=== PATIENT | female | born 1990 | race Caucasian/White ===

== ENCOUNTER 2024-10-21 05:36 | Inpatient (IN) | payer OTHER, SELFPAY ==
--- NOTE | 2024-10-21 05:04 | HPS.HSE ---
Family Physician
-
Family Physician: BAKARI Hobbs
Chief Complaint
-
repeat
History of Present Illness
HPI: Patient is a 34yo @39.0 who presents to Labor and Delivery for scheduled repeat . She declines TOLAC. She hs no complaints.
complications:
- Advanced maternal age
- History of prior C/Sx1 for failed IOL, declines TOLAC
- Limited views of corpus callosum and CSP on anatomy US, present on MRI at [facility]
- Elevated 1hr, 3hr wnl
- GBS positive
labs: Blood type A+, Ab neg, Pap NILM neg HPV, Rubella immune, RPR non-reactive, HBsAg neg, HIV neg, GCCT neg, Hep C neg, A1C 5.3, 1hr 143, 3hr wnl, GBS positive
PMHx: anxiety
Meds: PNV, zoloft 50mg daily
Surghx: C/Sx1
NKDA
Socialhx: denies tobacco, etoh, or illicit drug use
Famhx: father and maternal grandfather w/ HTN, maternal grandfather w/ HLD, maternal grandfather w/ AR and CAD
OBHx: PLTCS for failed IOL
Medical History
Past Medical History
Past Medical History: Reports Psychiatric
Additional Past Medical History:
anxiety
Past Surgical History: Reports
Social History
Tobacco: Non-smoker
Alcohol: None
Drug: None
Family History
Family History: CAD and Hypertension
Allergies / Home Medications
Allergies reflects when Allergies were last updated in [facility].
Home Medications with original date entered in [facility]
Allergy/Medication List:
Meds: PNV, Sertraline 50mg daily
NKDA
Review of Systems
-
A 12 point ROS was completed and negative except as noted: Yes
Physical Exam
Physical Exam
General: Well Developed and Well Nourished
HEENT: NormoCephalic
Respiratory: Non Labored Respirations
Cardiac: Regular Rhythm
GI: Other (gravid)
Skin: Warm and Dry
Neuro: Awake and Alert
Psych: Calm
Impression/Plan
-
IMPRESSION:
Patient is a 34yo @39.0 presents for scheduled repeat section
PLAN:
- Admission labs
- Proceed with repeat section. Risks, benefits and alternatives discussed including bleeding, infection, damage to surrounding structures and need for future operations. Patient consented for a blood transfusion in case of emergency.
Consents previously signed in the office.
- 2g of Ancef for antibiotic prophylaxis
[2024-10-21 05:53] VITALS: BMI 31.1
[2024-10-21 06:00] VITALS: BP 136/87
[2024-10-21 07:22] LABS: Hematocrit 32.5 % (37.0-47.0); Mean Corp Hgb Conc. 33.8 g/dL (33.0-37.0); Mean Corpuscular Hgb 28.3 pg (27.0-31.0); Mean Corpuscular Volume 83.5 fL (81.0-99.0); Mean Platelet Volume 11.4 fL (7.4-10.4); Platelet Count 208 10^3/uL (130-400); Red Blood Cell Count 3.89 10^6/uL (4.20-5.40); Red Cell Dist. Width 14.6 % (11.5-14.5); White Blood Cell Count 11.4 10^3/uL (4.8-10.8)
[2024-10-21] MEDS: BICITRA 30 ML PO (07:23)
[2024-10-21] MEDS: LR 1000 IV (07:23)
[2024-10-21] MEDS: TYLENOL 1000 MG PO (07:23)
[2024-10-21] MEDS: ANCEF 10 IV (07:23)
[2024-10-21] MEDS: TORADOL 15 MG IV ×3 (10:05→22:11)
[2024-10-21] MEDS: PITOCIN 30 UNITS/NSS 500 ML IV (13:07)
--- NOTE | 2024-10-21 14:00 | OR.RPT ---
Operative Report
Operative Report
Procedure date: 10/21/2024
Preop diagnosis: IUP @39.0, previous C/Sx1, declines TOLAC
Postop diagnosis: same
Procedure: Repeat low transverse section
Surgeon: João
Anesthesia: Spinal, Dr. Donovan
QBL: 350mL
Findings: Viable male infant born at 0810, Apgars 8/8, normal appearing bilateral fallopian tubes and ovaries
Complications: none
Indication: Patient is a 34yo @39.0 who presents for scheduled repeat section. She has a history of one prior section for failed induction of labor. She declines a trial of labor after and would like to proceed
with repeat section. Risks, benefits, and alternatives discussed and all questions answered. Consents were previously signed in the office.
Procedure: Patient was taken to the operating room where spinal anesthesia was administered and found to be adequate. 2g of Ancef were given for antibiotic prophylaxis. The abdomen was prepped with ChloraPrep. The patient was draped in the normal
sterile fashion. She was placed in the dorsal supine position with a left lateral tilt. A Pfannenstiel incision was made with a 10 blade and carried down to the fascia with a scalpel. Hemostasis achieved with Bovie. The fascia was incised and
dissected laterally with Redd scissors. The superior aspect of the fascia was grasped with Alex clamps. The underlying rectus fascia was sharply dissected with Redd scissors. In a similar fashion the inferior aspect of the fascia was elevated with
Alex clamps and the rectus muscle was dissected off with Redd scissors. The rectus muscles were down the midline to the level of the pubic symphysis with manual dissection. The peritoneum was bluntly entered and extended using manual
traction.
Dumont retractor and bladder blade were placed revealing good visualization of the bladder. The vesicouterine peritoneum was identified. A thin lower uterine segment was noted. The lower uterine segment was incised with a scalpel. Amniotic sac
noted at entry. The amniotic sac was artificially ruptured with an Allis clamp for clear fluid. The uterine incision was extended bluntly with lateral and upward traction.
The fetus was in cephalic presentation. The head was elevated out of the pelvis with special attention paid to avoid using the uterine incision as a fulcrum. Gentle fundal pressure was applied one the head was brought to the incision and the head
delivered through the hysterotomy. The rest of the delivered without difficulty. Delayed cord clamping was performed. The infant was handed off to the disposition clerk. IV oxytocin was started to facilitate uterine contractions. The placenta was
delivered with fundal massage and gentle downward traction. The uterus was exteriorized. Allis clamps were placed at the apices of the hysterotomy. The inside of the uterus was wiped with a lap sponge to assure complete removal of placental
membranes. Fundal massage was performed and uterus was firm. The uterine incision was closed with 0 Vicryl in a running locked fashion. A horizontal imbricating stitch was done on the hysterotomy with 0 Vicryl. There was oozing along the hysterotomy
and figure of eights were placed with 0 Vicryl to achieve hemostasis. The hysterotomy was inspected and noted to be hemostatic. The uterus was placed back in the abdomen. Blood clots and fluid were wiped out of the abdomen and pelvis with moist
laparotomy sponges. The hysterotomy was examined and there was bleeding from the left corner. Figure of eights were placed with 0-Vicryl and 2-0 Vicryl to achieve hemostasis. There was oozing from the peritoneal edge that was controlled with Bovie
cautery. The hysterotomy was inspected again and was hemostatic.
The rectus muscles were inspected and were hemostatic. The fascial layer was closed in a running continuous fashion using 0 Vicryl. The subcutaneous tissue was copiously irrigated and any small bleeding vessels were cauterized with Bovie cautery.
The subcutaneous tissue was reapproximated in a running continuous fashion with 2-0 Plain. The skin was closed with 4-0 Vicryl in a subcuticular fashion and covered with steri strips. The skin edges were oozing so a pressure dressing was applied.
The patient tolerated the procedure well. All sponge and instrument counts were correct times two. The patient was taken to the recovery room in stable condition. Laird catheter was draining clear urine at the end of the procedure.
[2024-10-22] MEDS: TORADOL 15 MG IV (04:24)
[2024-10-22 05:17] LABS: Hematocrit 30.1 % (37.0-47.0); Hemoglobin 10.2 g/dL (12.0-16.0); Mean Corp Hgb Conc. 33.9 g/dL (33.0-37.0); Mean Corpuscular Hgb 28.4 pg (27.0-31.0); Mean Corpuscular Volume 83.8 fL (81.0-99.0); Mean Platelet Volume 11.2 fL (7.4-10.4); Platelet Count 211 10^3/uL (130-400); Red Blood Cell Count 3.59 10^6/uL (4.20-5.40); Red Cell Dist. Width 14.4 % (11.5-14.5); White Blood Cell Count 16.7 10^3/uL (4.8-10.8)
[2024-10-22] MEDS: ZOLOFT 150 MG PO (07:39)
[2024-10-22] MEDS: PRENATAL PLUS 1 TABLET PO (07:40)
[2024-10-22] MEDS: TYLENOL 650 MG PO ×2 (07:42→17:49)
[2024-10-22] MEDS: SENOKOT-S 1 TABLET PO (07:47)
[2024-10-22] MEDS: MYLICON 80 MG PO ×3 (07:47→17:51)
[2024-10-22] MEDS: MOTRIN 600 MG PO ×2 (10:19→17:50)
--- NOTE | 2024-10-22 12:33 | W.PN.ANS.POP ---
Anesthesia Post Operative
- Anesthesia Post Op Note
Vital Signs Stable-See Nursing Note: Yes
Airway Patent: Yes
Adequate Pain Control: Yes
Change in Mental Status: No
Current Postoperative Nausea & Vomiting: No
Anesthesia Complications: No
General Anesthetic Recall: No
Unplanned Admission: No
Post Op Hydration Adequate: Yes
[2024-10-22] MEDS: PERCOCET 5/325 1 TABLET PO (16:00)
[2024-10-23] MEDS: MOTRIN 600 MG PO ×3 (00:01→12:10)
[2024-10-23] MEDS: PERCOCET 5/325 1 TABLET PO ×3 (00:02→12:10)
[2024-10-23] MEDS: PRENATAL PLUS 1 TABLET PO (08:37)
[2024-10-23] MEDS: ZOLOFT 150 MG PO (08:38)
[2024-10-23] MEDS: SENOKOT-S 1 TABLET PO (08:38)
--- NOTE | 2024-10-23 09:58 | W.DS.TRANS ---
DC Summary - [employer]
-
Discharge Instructions:
Discharge Diagnosis/Procedures delivered by low transverse
section; mild anemia
Diet Regular
Activity No strenuous activity
Driving Restrictions No driving for 2 weeks
Bathing Restrictions OK to Shower
Instructions:
Stand-Alone Forms: [facility] Delivery
Changes to Home Medications: No
Discharge Medications:
DC Medications w/original date entered in [facility]
vitamin-ferrous fumarate 28 mg iron-folic acid 800 mcg tablet ( Tablet) 1 tab PO DAILY Supplement 03/01/23
sertraline 50 mg tablet (Zoloft) 150 mg PO DAILY Depression 03/01/23
ibuprofen 600 mg tablet 600 mg PO Q6HPRN PRN cramps #0 tabs 10/23/24
oxycodone-acetaminophen 5 mg-325 mg tablet 1 tab PO Q4HPRN PRN moderate pain #8 tabs 10/23/24
Home Medication Changes
Pending Results: No
Total time spent discharging patient (in min): 20
--- NOTE | 2024-10-23 11:18 | CM ---
CM met with parents and baby at bedside.
Baby / MOB for d/c today.
In the home, resides FOB, MOB, almost 2 year old daughter, and new baby boy Juan Carlos.
MOB states she has a breast pump and all baby supplies ready.
We discussed her PPD score of 11. She states she had PPD with her first child.
She sees a psychiatrist. At the time of her first preg, she was on 50mg Zoloft, but then it was increased to 150mg.
She has been on this dosage since, and finds it to be helpful. She declines therapy resources, as she is able to get that through her psych practice.
She states she is aware of symptoms and has a good support system.
She was also informed about the mother's support group.
PEDS: [facility]
Goal: home, no needs.
[2024-10-25 13:34] LABS: Syphilis/T. pallidum Ab Reflex Negative (Negative)
== END 2024-10-23 13:19 | disposition home or self-care (01) | DRG 788 ==
LOC: LDRP 05:36
PROVIDERS: ADMITTING PHYSICIAN Student in an Organized Health Care Education/Training Program; FAMILY PHYSICIAN Nurse Practitioner Adult Health
PROC: 10D00Z1 Extraction of Products of Conception, Low, Open Approach (ICD-10-PCS; 2024-10-21)
DX: O34.211 Maternal care for low transverse scar from previous cesarean delivery (principal); O99.344 Other mental disorders complicating childbirth; F32.A Depression, unspecified; Z3A.39 39 weeks gestation of pregnancy; Z37.0 Single live birth; F41.9 Anxiety disorder, unspecified; O99.824 Streptococcus B carrier state complicating childbirth; Z82.49 Family history of ischemic heart disease and other diseases of the circulatory system
CPT/HCPCS: 36415; 85027; 86780; 86850; 86900; 86901